=== PATIENT | male | born 1940 | race Caucasian/White ===

== ENCOUNTER 2020-11-02 17:54 | Emergency (ER) | payer MEDICARE ==
[~2020-11-02] VITALS: Ht 182.9 cm; Wt 107.6 kg
--- NOTE | 2020-11-02 18:24 | PHYS DOC ---
Adult General Chief Complaint Chief Complaint: SHORTNESS OF BREATH HPI HPI Patient is a 79-year-old male presents emergency department complaining of shortness of breath on exertion for the past several weeks, patient states that has become worse over the past week, patient states he sees his primary care Dr. Bennett several times and has been treated just recently with a prednisone Medrol Dosepak which did not seem to be working so well even though he has what he believes is 1 or 2 days left on the dosing regimen, patient also states that he was started on Flonase nasal spray and Singulair yesterday he had taken 1 dose and noticed that he did not feel better right away, after speaking with his who is been having the same symptoms for even longer had decided that he would come in for an evaluation as he is worried that he may have something wrong like a pneumonia or blood clot in his lungs. Patient states that he just recently tested negative for Covid 19 virus, the patient states that he does not wish to be tested again for the COVID-19 virus. The patient does deny fever or chills, cough, congestion, chest pain, chest palpitations, nausea, vomiting, or diarrhea or constipation. 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 Patient denies any other physical elements or physical concerns. Review of Systems Review of Systems 14 body systems of review of systems have been reviewed. See HPI for pertinent positives and negative responses, otherwise all other systems are negative, nonpertinent or noncontributory. Current Medications Current Medications Alendronate 70 mg every morning, amlodipine 5 mg twice daily, Eliquis 5 mg 5 mg twice daily, Pulmicort nebulizer twice daily, Tikosyn 250 mcg twice daily, Cymbalta 20 mg twice daily, Flonase 50 mcg nasal spray as needed, glucosamine 500 mg tablets twice daily, Synthroid 150 mcg daily, losartan 100 mg daily, naproxen sodium 500 mg daily, omeprazole DR 20 mg capsule daily, Perforomist 20 mcg nebulizer solution twice daily, Zocor 10 mg daily, Symbicort 80-4.5 mcg daily, Flomax 0.4 mg daily Singulair daily Allergies Allergies Allergies Coded Allergies Type Severity Reaction Last Updated Verified No Known Drug Allergies 11/02/20 No Physical Exam Physical Exam Constitutional: Well developed, well nourished, no acute distress, non-toxic appearance. HENT: Normocephalic, atraumatic, bilateral external ears normal, oropharynx moist, no oral exudates, nose normal. Eyes: PERRLA, EOMI, conjunctiva normal, no discharge. Neck: Normal range of motion, no tenderness, supple, no stridor. Cardiovascular:Heart rate regular rhythm, no murmur Lungs & Thorax: I/E wheezing to bilateral upper lobes per auscultation, right middle lobe and bilateral lower lobes diminished, no other adventitious lung sounds appreciated. Abdomen: Bowel sounds normal, soft, no tenderness, no masses, no pulsatile masses. Skin: Warm, dry, no erythema, no rash. Back: No tenderness, no CVA tenderness. Extremities: No tenderness, no cyanosis, no clubbing, ROM intact, no edema. Neurologic: Alert and oriented X 3, normal motor function, normal sensory function, no focal deficits noted. Psychologic: Affect normal, judgement normal, mood normal. Current Patient Data Vital Signs Vital signs for initial exam were blood pressure right upper extremity NIBP 135/64, heart rate 70, respirations 16, oral temperature 97.9, oxygen saturation on room air was 98%. Lab Results Laboratory Tests Test 11/02/20 18:50 White Blood Count 6.4 x10^3/uL Red Blood Count 4.16 x10^6/uL Hemoglobin 11.8 g/dL Hematocrit 36.3 % Mean Corpuscular Volume 87 fL Mean Corpuscular Hemoglobin 28 pg Mean Corpuscular Hemoglobin Concent 32 g/dL Red Cell Distribution Width 14.4 % Platelet Count 232 x10^3/uL Neutrophils (%) (Auto) 79 % Lymphocytes (%) (Auto) 14 % Monocytes (%) (Auto) 7 % Eosinophils (%) (Auto) 0 % Basophils (%) (Auto) 0 % Neutrophils # (Auto) 5.0 x10^3uL Lymphocytes # (Auto) 0.9 x10^3/uL Monocytes # (Auto) 0.5 x10^3/uL Eosinophils # (Auto) 0.0 x10^3/uL Basophils # (Auto) 0.0 x10^3/uL Prothrombin Time 9.5 SEC Prothromb Time International Ratio 0.9 Activated Partial Thromboplast Time 27 SEC D-Dimer (Kimberly) 0.19 mg/L Sodium Level 136 mmol/L Potassium Level 4.6 mmol/L Chloride Level 99 mmol/L Carbon Dioxide Level 26 mmol/L Anion Gap 11 Blood Urea Nitrogen 23 mg/dL Creatinine 1.5 mg/dL Estimated GFR (Cockcroft-Gault) 45.0 BUN/Creatinine Ratio 15 Glucose Level 147 mg/dL Lactic Acid Level 2.1 mmol/L Calcium Level 8.4 mg/dL Magnesium Level 2.4 mg/dL Total Bilirubin 0.2 mg/dL Aspartate Amino Transf (AST/SGOT) 25 U/L Alanine Aminotransferase (ALT/SGPT) 37 U/L Alkaline Phosphatase 128 U/L Troponin I Quantitative < 0.017 ng/mL Total Protein 6.7 g/dL Albumin 3.5 g/dL Albumin/Globulin Ratio 1.1 Current Medications Medications (Trade) Dose Ordered Sig/Lucio Route PRN Reason Start Time Stop Time Status Last Admin Dose Admin Albuterol Sulfate (Ventolin) 2.5 mg STK-MED ONCE .ROUTE 11/02/20 18:57 11/02/20 18:57 DC Azithromycin (Zithromax) 500 mg 1X ONCE PO 11/02/20 20:30 11/02/20 20:31 UNV EKG EKG EKG performed at 1838 by ED nursing staff, heart rate 65 bpm, no P waves appreciated, QTc interval 0.450, no acute STEMI, no acute ACS, no acute ischemia appreciated, EKG interpreted by ED attending Dr. Gifford. Radiology/Procedures Radiology/Procedures STATUS: REG ER ORD. PHYSICIAN: MATT ROSALES APRN REASON: SHORT OF BREATH PROCEDURE: CHEST PA & LATERAL Exam: Chest 2 views INDICATION: Shortness of breath TECHNIQUE: Frontal and lateral view of the chest Comparisons: None FINDINGS: Pacer with leads terminating the right atrium and ventricle. The cardiomediastinal silhouette and pulmonary vessels are within normal limits. Patchy airspace disease at the lung bases bilaterally. No pleural effusion. IMPRESSION: Patchy bibasilar airspace disease. Electronically signed by: Leonid De La Cruz MD (11/02/2020 7:23 PM) [facility] DICTATED AND SIGNED BY: LEONID DE LA CRUZ MD DATE: 11/02/201921 CC: MATT ROSALES APRN; SHRUTHI BENNETT MD ~MTH0 0 Heart Score Risk Factors: Risk Factors: DM, Current or recent (<one month) smoker, HTN, HLP, family history of CAD, obesity. Risk Scores: Risk Factors: DM, Current or recent (<one month) smoker, HTN, HLP, family history of CAD, obesity. Course & Med Decision Making Course & Med Decision Making Pertinent Labs and Imaging studies reviewed. (See chart for details) 79-year-old male presented to the emergency department complaining of shortness of breath over the past several weeks that became worse over the past week, he is currently being closely followed by his primary care Dr. Shruthi Bennett, he has approximately 1 to 2 days left on a Medrol Dosepak and was recently started on Singulair and Flonase nasal spray. Patient gave the Singulair and Flonase nasal spray 1 day trial and decided that it was not working and decided to come into the emergency department today. Patient's initial presentation was nontoxic, he was in no respiratory distress, he had no chest pains. Upon physical examination light I/E wheezing of the bilateral upper lobes were noted, a albuterol breathing treatment was initiated by house respiratory therapist, upon reevaluation patient's lungs were clear to auscultation. Patient's lab work was mostly unremarkable, his EKG was negative for acute findings, his troponinI was negative as well. The patient did have a elevated lactic acid at 2.1, this is only 1/10 above the high side of normal, related to the patient's nontoxic presentation, in no respiratory distress, no chest pains, this is most likely a negative outlier. The patient chest x-ray did show some patchy airspa ce disease without effusion read by house radiologist interpretation, will start patient on Zithromax/Z-Dat. Discussed findings with patient who upon reexamination remained nontoxic in appearance, was in no respiratory distress, and had no complaints at this time. Patient gave verbal understanding of prescription medications Zithromax and strict follow-up instructions to see Dr. Bennett tomorrow patient states that he will see his doctor tomorrow, gave verbal understanding of return to ER precautions and concerns, patient had no further questions or concerns, patient discharged home without incident. Patient will be diagnosed with community-acquired pneumonia related to presentation, complaint, and chest x-ray interpretation, the patient's curb 65 score is low and not recommended for inpatient care, related to patient's close care by his primary care physician and patient's nontoxic, negative physical examination at this time, I feel it is safe for the patient to be discharged to home and treat his pneumonia with a macrolide Zithromax Dragon Disclaimer Dragon Disclaimer This electronic medical record was generated, in whole or in part, using a voice recognition dictation system. Departure Departure: Impression: Primary Impression: Community acquired pneumonia Disposition: DC HOME SELF CARE/HOMELESS Condition: GOOD Referrals: SHRUTHI BENNETT MD (PCP) Patient Instructions: Pneumonia, Adult Additional Instructions: You have been evaluated in the emergency department today for your cough and shortness of breath, your chest x-ray showed some mild patchy airspace is suggestive of pneumonia, related to your physical presentation I feel that it is safe for you to be discharged home with a prescription for azithromycin, I have given your first dose here in the ER, please take the Z-Dat as directed, it is imperative that you see your doctor tomorrow for a reevaluation of your breathing problems. Dr. Bennett needs to know that I have started you on the Z- Dat, and that your x-ray was suggestive of mild patchy airspace disease without pleural effusion. Please return to the emergency room immediately if your symptoms worsen, or you have other concerns. Please continue to take your normal medications as directed by your primary care Dr. Bennett. EMERGENCY DEPARTMENT GENERAL DISCHARGE INSTRUCTIONS Thank you for coming to [facility] (ED) today and trusting us with you care. We trust that you had a positivie experience in our Emergency Department. If you wish to speak to the department management, you may call the director at [phone]. YOUR FOLLOW UP INSTRUCTIONS ARE FOLLOWS: 1. Do you have a private Doctor? If you do not have a private doctor, please ask for a resource list of physicians or clinics that may be able to assist you with follow up care. 2. The Emergency Physician has interpreted your x-rays. The X-Ray specialist will also review them. If there is a change in the findings, you will be notified in 48 hours when at all possible. 3. A lab test or culture has been done, your results will be reviewed and you will be notified if you need a change in treatment. ADDITIONAL INSTRUCTIONS AND INFORMATION: 1. Your care today has been supervised by a physician who is specially trained in emergency care. Many problems require more than one evaluation for a complete diagnosis and treatment. We recommend that you schedule your follow up appointment as recommended to ensure complete treatment of you illness or injury. If you are unable to obtain follow up care and continue to have a problem, or if your condition worsens, we recommend that you return to the ED. 2. We are not able to safely determine your condition over the phone nor are we able to give sound medical advice over the phone. For these safety reasons, if you call for medical advice we will ask you to come to the ED for further evaluation. 3. If you have any questions regarding these discharge instructions please call the ED at [phone]. SAFETY INFORMATION: In the interest of safety, wellness, and injury prevention; we encourage you to wear your sealbelt, if you smoke; quite smoking, and we encourage family to use a protective helmet for bicycling and other sporting events that present an increased risk for head injury. IF YOUR SYMPTOMS WORSEN OR NEW SYMPTOMS DEVELOP, OR YOU HAVE CONCERNS ABOUT YOUR CONDITION; OR IF YOUR CONDITION WORSENS WHILE YOU ARE WAITING FOR YOUR FOLLOW UP APPOINTMENT; EITHER CONTACT YOUR PRIMARY CARE DOCTOR, THE PHYSICIAN WHOSE NAME AND NUMBER YOU WERE GIVEN, OR RETURN TO THE ED IMMEDIATELY. Scripts Azithromycin (ZITHROMAX) 250 Mg Tablet 1 PKG PO UD for PNEUMONIA, #6 TAB 0 Refills Prov: MATT ROSALES SALOONKEEPER 11/02/20 Problem Qualifiers Primary Impression: Community acquired pneumonia Laterality: unspecified laterality Qualified Codes: J18.9 - Pneumonia, unspecified organism MATT ROSALES SALOONKEEPER Nov 02, 2020 18:24
[2020-11-02] MEDS ORDERED: ALBUTEROL SULFATE 2.5 MG/3 ML NEBU. ONE (18:57)
[2020-11-02 19:21] LABS: BASO % 0 % (0-3); EOS % 0 % (0-3); HEMATOCRIT 36.3 % (39.0-53.0); HEMOGLOBIN 11.8 g/dL (13.0-17.5); LYMPH # 0.9 x10^3/uL (1.0-4.8); LYMPH % 14 % (24-48); MEAN CORPUSCULAR HEMOGLOBIN 28 pg (25-35); MEAN CORPUSCULAR HGB CONC 32 g/dL (31-37); MEAN CORPUSCULAR VOLUME 87 fL (79-100); MONO # 0.5 x10^3/uL (0.0-1.1); MONO % 7 % (0-9); NEUT % 79 % (31-73); PLATELET COUNT 232 x10^3/uL (140-400); RED BLOOD COUNT 4.16 x10^6/uL (4.30-5.70); RED CELL DISTRIBUTION WIDTH 14.4 % (11.5-14.5); WHITE BLOOD COUNT 6.4 x10^3/uL (4.0-11.0)
--- NOTE | 2020-11-02 19:26 | RAD ---
Exam: Chest 2 views INDICATION: Shortness of breath TECHNIQUE: Frontal and lateral view of the chest Comparisons: None FINDINGS: Pacer with leads terminating the right atrium and ventricle. The cardiomediastinal silhouette and pulmonary vessels are within normal limits. Patchy airspace disease at the lung bases bilaterally. No pleural effusion. IMPRESSION: Patchy bibasilar airspace disease. Electronically signed by: Leonid Chatman MD (11/02/2020 7:23 PM) MELVI
[2020-11-02 19:30] LABS: CALCIUM 8.4 mg/dL (8.5-10.1); CREATININE 1.5 mg/dL (0.7-1.3); POTASSIUM 4.6 mmol/L (3.5-5.1)
--- NOTE | 2020-11-02 19:37 | EKG ---
[facility] ED [facility] [address] [place] [id number] Test Date: 2020-11-02 Test Time: 18:38:21 Pat Name: TRI SALMERON Department: Room: Gender: M Japanese Professor: : 1940 Requested By: MATT ROSALES Order Number: [id number] Reading MD: Measurements Intervals [place] Rate: 65 P: [place]: QRS: -8 QRSD: 76 T: 14 QT: 432 QTc: 450 Interpretive Statements IRREGULAR RHYTHM, NO P-WAVE FOUND VENTRICULAR PREMATURE COMPLEX(ES) LEFTWARD AXIS ABNORMAL ECG RI6.02 No previous ECG available for comparison
[2020-11-02 19:43] LABS: ALBUMIN 3.5 g/dL (3.4-5.0); ALBUMIN/GLOBULIN RATIO 1.1 (1.0-1.7); MAGNESIUM 2.4 mg/dL (1.8-2.4); TOTAL BILIRUBIN 0.2 mg/dL (0.2-1.0); TOTAL PROTEIN 6.7 g/dL (6.4-8.2)
[2020-11-02] MEDS ORDERED: AZITHROMYCIN 250 MG TABLET. PO ONE (20:30)
[2020-11-02 20:32] VITALS: BP 135/69
[2020-11-02] MEDS ORDERED: AZIT250T PO (20:45)
== END 2020-11-02 21:17 | disposition home or self-care (01) ==
LOC: ER 17:54
DX: J18.9 Pneumonia, unspecified organism (principal); J44.9 Chronic obstructive pulmonary disease, unspecified; G47.30 Sleep apnea, unspecified; Z95.0 Presence of cardiac pacemaker
CPT/HCPCS: 36415; 71046; 80053; 83735; 84484; 85025; 85379; 85610; 85730; 93005; 94640; 99285; J0456

== ENCOUNTER 2020-11-05 14:44 | Emergency (ER) | payer MEDICARE ==
[~2020-11-05] VITALS: Ht 182.9 cm; Wt 107.6 kg
[~2020-11-05 14:44] MED LIST: AZIT250T PO
[2020-11-05] MEDS ORDERED: ALBUTEROL SULFATE 2.5 MG/3 ML NEBU. NEB ONE (15:00)
--- NOTE | 2020-11-05 15:19 | RAD ---
EXAM: Chest, 2 views. HISTORY: Shortness of breath. Pneumonia. COMPARISON: 11/02/2020 FINDINGS: 2 views of the chest are obtained. There is no infiltrate, pleural effusion or pneumothorax . The heart is normal in size. There is a calcified granuloma within the right lower lobe. There is a cardiac pacemaker in expected position. IMPRESSION: No acute pulmonary finding. Electronically signed by: Denia Hameed MD (11/05/2020 3:16 PM) [id number]
[2020-11-05 15:44] LABS: BASO # 0.1 x10^3/uL (0.0-0.2); BASO % 1 % (0-3); EOS % 0 % (0-3); HEMATOCRIT 36.3 % (39.0-53.0); HEMOGLOBIN 11.7 g/dL (13.0-17.5); LYMPH # 1.8 x10^3/uL (1.0-4.8); LYMPH % 24 % (24-48); MEAN CORPUSCULAR HEMOGLOBIN 28 pg (25-35); MEAN CORPUSCULAR HGB CONC 32 g/dL (31-37); MEAN CORPUSCULAR VOLUME 87 fL (79-100); MONO % 13 % (0-9); NEUT # 4.8 x10^3uL (1.8-7.7); NEUT % 62 % (31-73); PLATELET COUNT 223 x10^3/uL (140-400); RED BLOOD COUNT 4.18 x10^6/uL (4.30-5.70); WHITE BLOOD COUNT 7.8 x10^3/uL (4.0-11.0)
[2020-11-05 15:53] LABS: CREATININE 1.1 mg/dL (0.7-1.3); GFR 64.4; POTASSIUM 3.7 mmol/L (3.5-5.1)
--- NOTE | 2020-11-05 15:56 | PHYS DOC ---
Past History Past Medical History: Arrhythmia, COPD, Hypothyroid Past Surgical History: Pacemaker Alcohol Use: None Adult General Chief Complaint Chief Complaint: SHORTNESS OF BREATH HPI HPI Patient is a 79-year-old male who presents emergency department complaining of increased fatigue and increased cough. Patient states he was seen here this past Tuesday and was diagnosed with pneumonia, has been taking his medicines like he should, patient states he actually feels better than he did last Tuesday, the patient states that his was admitted to the hospital just yesterday and he is concerned that maybe he needs to be admitted as well. Patient currently denies any chest pains, shortness of breath, recent fever chills, abdominal pain, nausea, vomiting, diarrhea, chest palpitations, skin rashes, nasal congestion. Patient denies any other physical elements or physical complaints. Patient states that he was tested earlier this year for the COVID-19 virus and does not wish to be tested today for the COVID-19 virus. Review of Systems Review of Systems 14 body systems of review of systems have been reviewed. See HPI for pertinent positives and negative responses, otherwise all other systems are negative, nonpertinent or noncontributory. Current Medications Current Medications Current Medications Medications (Trade) Dose Ordered Sig/Lucio Start Time Stop Time Status Last Admin Dose Admin Albuterol Sulfate (Ventolin) 2.5 mg 1X ONCE 11/05/20 15:00 11/05/20 15:08 DC 11/05/20 15:50 2.5 MG Allergies Allergies Allergies Coded Allergies Type Severity Reaction Last Updated Verified No Known Drug Allergies 11/02/20 No Physical Exam Physical Exam Constitutional: Well developed, well nourished, no acute distress, non-toxic appearance. HENT: Normocephalic, atraumatic, bilateral external ears normal, oropharynx moist, no oral exudates, nose normal. Eyes: PERRLA, EOMI, conjunctiva normal, no discharge. Neck: Normal range of motion, no tenderness, supple, no stridor. Cardiovascular:Heart rate regular rhythm, no murmur Lungs & Thorax: Bilateral breath sounds light i.e. wheezes eating to bilateral upper lobes, right middle lobe and lower lobe along with left lower lobe clear and diminished. Abdomen: Bowel sounds normal, soft, no tenderness, no masses, no pulsatile masses. Skin: Warm, dry, no erythema, no rash. Back: No tenderness, no CVA tenderness. Extremities: No tenderness, no cyanosis, no clubbing, ROM intact, no edema. Neurologic: Alert and oriented X 3, normal motor function, normal sensory function, no focal deficits noted. Psychologic: Affect normal, judgement normal, mood normal. Current Patient Data Vital Signs Vital Signs Date Time Temp Pulse Resp B/P (MAP) Pulse Ox O2 Delivery O2 Flow Rate FiO2 11/05/20 15:50 Room Air 11/05/20 14:58 97.9 61 16 151/64 (93) 98 Lab Results Laboratory Tests Test 11/05/20 15:22 White Blood Count 7.8 x10^3/uL (4.0-11.0) Red Blood Count 4.18 x10^6/uL (4.30-5.70) L Hemoglobin 11.7 g/dL (13.0-17.5) L Hematocrit 36.3 % (39.0-53.0) L Mean Corpuscular Volume 87 fL (79-100) Mean Corpuscular Hemoglobin 28 pg (25-35) Mean Corpuscular Hemoglobin Concent 32 g/dL (31-37) Red Cell Distribution Width 14.0 % (11.5-14.5) Platelet Count 223 x10^3/uL (140-400) Neutrophils (%) (Auto) 62 % (31-73) Lymphocytes (%) (Auto) 24 % (24-48) Monocytes (%) (Auto) 13 % (0-9) H Eosinophils (%) (Auto) 0 % (0-3) Basophils (%) (Auto) 1 % (0-3) Neutrophils # (Auto) 4.8 x10^3uL (1.8-7.7) Lymphocytes # (Auto) 1.8 x10^3/uL (1.0-4.8) Monocytes # (Auto) 1.0 x10^3/uL (0.0-1.1) Eosinophils # (Auto) 0.0 x10^3/uL (0.0-0.7) Basophils # (Auto) 0.1 x10^3/uL (0.0-0.2) EKG EKG EKG performed at 1545 by [facility] shows patient in a normal sinus rhythm without ectopy heart rate is 66 bpm, KS interval 0.200, QTc in terval 0.472, no ACS, no acute ischemia, no STEMI noted, EKG interpreted by ED attending Dr. Brady. Radiology/Procedures Radiology/Procedures STATUS: REG ER ORD. PHYSICIAN: MATT ROSALES APRN REASON: SHORT OF BREATH, RECENT PNEUMONIA PROCEDURE: CHEST PA & LATERAL EXAM: Chest, 2 views. HISTORY: Shortness of breath. Pneumonia. COMPARISON: 11/02/2020 FINDINGS: 2 views of the chest are obtained. There is no infiltrate, pleural effusion or pneumothorax. The heart is normal in size. There is a calcified granuloma within the right lower lobe. There is a cardiac pacemaker in expected position. IMPRESSION: No acute pulmonary finding. Electronically signed by: Denia Chi MD (11/05/2020 3:16 PM) [id number] DICTATED AND SIGNED BY: DENIA CHI MD DATE: 11/05/20 1516 CC: MATT ROSALES APRN; ELEONORA BRADY MD; SHRUTHI BENNETT MD ~MTH0 0 Heart Score Risk Factors: Risk Factors: DM, Current or recent (<one month) smoker, HTN, HLP, family history of CAD, obesity. Risk Scores: Risk Factors: DM, Current or recent (<one month) smoker, HTN, HLP, family history of CAD, obesity. Course & Med Decision Making Course & Med Decision Making Pertinent Labs and Imaging studies reviewed. (See chart for details) Patient presents emergency department complaining of being diagnosed with pneumonia earlier this week, states that his is in the hospital and wonders whether he should be in the hospital as well. Physical examination was concerning for mild wheezing of upper lobes, a albuterol nebulizer treatment was ordered. Patient's physical examination otherwise was unremarkable, I had seen this patient this past Tuesday and diagnosed him with pneumonia, starting him on a Z-Dat, patient is nontoxic in appearance. Patient is in no apparent distress, patient has a significantly better presentation than he did when I examined and cared for him this past Tuesday. Discussed with patient that I will repeat his examination to include x-ray, EKG, and lab work and determine whether or not he needs to be admitted to the hospital. Patient did state that he does not wish to be admitted to the hospital, he was is concerned that since his was admitted that he may need to be admitted as well. Results pending at this time. Patient's chest x-ray was unremarkable, no longer showing concerns for pneumonia. Patient's labs were also unremarkable, patient's EKG had not changed from prior EKG this past Tuesday. Related to patient's ongoing fatigue, recommended patient have Covid testing reobtain, patient was amenable to this, patient was retested for Covid today in the emergency department. Discussed findings with patient, recommended that patient continue his outpatient community-acquired pneumonia regimen, will add albuterol nebulizer to his home treatment while he is currently on his antibiotic regimen. Patient is to call his primary care physician and ask if he needs to continue using the albuterol nebulizer after his last dose of antibiotic. Patient gave verbal understanding of this, patient states that he would have rather gone home anyway, patient states that he was relieved and no that his lab work looks better and his chest x-ray looks better. Patient gave verbal understanding of return to ER precautions or concerns, patient had no further questions or concerns, patient discharged home without incident. Patient gave verbal understanding of COVID-19 results pending. Dragon Disclaimer Dragon Disclaimer This electronic medical record was generated, in whole or in part, using a voice recognition dictation system. Departure Departure: Impression: Primary Impression: Feared condition not demonstrated Additional Impressions: Wheezing without diagnosis of asthma Person under investigation for COVID-19 Disposition: 01 DC HOME SELF CARE/HOMELESS Condition: IMPROVED Referrals: SHRUTHI BENNETT MD (PCP) Additional Instructions: You are reevaluated today for your pneumonia symptoms, your x-ray and laboratory work shows that you are improving, at this time I do not feel that you need to come into the hospital, we discussed hospital admission and we made a joint decision to you can go home and continue your antibiotic regimen. However I am adding an albuterol nebulizer medication that you can use while you are currently taking the antibiotics for the pneumonia infection. After the medication regimen is complete, please call Dr. Bennett and ask for his approval to continue any further use of albuterol nebulizer treatments. Please come to back to the emergency department for reevaluation for worsening symptoms or other concerns. EMERGENCY DEPARTMENT GENERAL DISCHARGE INSTRUCTIONS Thank you for coming to [facility] (ED) today and trusting us with you care. We trust that you had a positivie experience in our Emergency Department. If you wish to speak to the department management, you may call the director at [phone]. YOUR FOLLOW UP INSTRUCTIONS ARE FOLLOWS: 1. Do you have a private Doctor? If you do not have a private doctor, please ask for a resource list of physicians or clinics that may be able to assist you with follow up care. 2. The Emergency Physician has interpreted your x-rays. The X-Ray specialist will also review them. If there is a change in the findings, you will be notified in 48 hours when at all possible. 3. A lab test or culture has been done, your results will be reviewed and you will be notified if you need a change in treatment. ADDITIONAL INSTRUCTIONS AND INFORMATION: 1. Your care today has been supervised by a physician who is specially trained in emergency care. Many problems require more than one evaluation for a complete diagnosis and treatment. We recommend that you schedule your follow up appointment as recommended to ensure complete treatment of you illness or injury. If you are unable to obtain follow up care and continue to have a problem, or if your condition worsens, we recommend that you return to the ED. 2. We are not able to safely determine your condition over the phone nor are we able to give sound medical advice over the phone. For these safety reasons, if you call for medical advice we will ask you to come to the ED for further evaluation. 3. If you have any questions regarding these discharge instructions please call the ED at [phone]. SAFETY INFORMATION: In the interest of safety, wellness, and injury prevention; we encourage you to wear your sealbelt, if you smoke; quite smoking, and we encourage family to use a protective helmet for bicycling and other sporting events that present an increased risk for head injury. IF YOUR SYMPTOMS WORSEN OR NEW SYMPTOMS DEVELOP, OR YOU HAVE CONCERNS ABOUT YOUR CONDITION; OR IF YOUR CONDITION WORSENS WHILE YOU ARE WAITING FOR YOUR FOLLOW UP APPOINTMENT; EITHER CONTACT YOUR PRIMARY CARE DOCTOR, THE PHYSICIAN WHOSE NAME AND NUMBER YOU WERE GIVEN, OR RETURN TO THE ED IMMEDIATELY. Scripts Albuterol Sulfate (ALBUTEROL SULFATE NEB SOLN ) 2.5 Mg/3 Ml Vial.neb 1 VIAL NEB PRN Q4HRS for WHEEZING DURING CAP TREATMENT , #50 VIAL USE IN NEBULIZER MACHINE UP TO EVERY 4 HOURS NEEDED FOR SHORTNESS OF BREATH AND WHEEZING DURING YOUR COMMUNITY AQUIRED PNEUMONIA ANTIBIOTIC TREATMENT REGIMEN. AFTER ANTIBIOTIC REGIMEN IS COMPLETE, PLEASE OBTAIN APPROVAL FROM YOUR PRIMARY DOCTOR FOR CONTINUED USE. Prov: MATT ROSALES APRN 11/05/20 Problem Qualifiers MATT ROSALES APRN Nov 05, 2020 15:56
[2020-11-05 15:59] LABS: ALBUMIN 3.4 g/dL (3.4-5.0); MAGNESIUM 2.4 mg/dL (1.8-2.4); TOTAL BILIRUBIN 0.2 mg/dL (0.2-1.0); TOTAL PROTEIN 6.8 g/dL (6.4-8.2)
[2020-11-05 16:05] VITALS: BP 107/68
--- NOTE | 2020-11-05 16:12 | EKG ---
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
[2020-11-05] MEDS ORDERED: ALBU2.5V5 NEB (16:36)
== END 2020-11-05 16:49 | disposition home or self-care (01) ==
LOC: ER 14:44
DX: U07.1 COVID-19 (principal); R06.2 Wheezing; R53.83 Other fatigue; J44.9 Chronic obstructive pulmonary disease, unspecified; E03.9 Hypothyroidism, unspecified; Z95.0 Presence of cardiac pacemaker
CPT/HCPCS: 36415; 71046; 80053; 83605; 83735; 84484; 85025; 93005; 94640; 99285; C9803; J7613; U0003

== ENCOUNTER → 2021-03-20 | Outpatient (CLI) | payer MEDICARE ==
[~2021-03-20] MED LIST changes: +ALBU2.5V5 NEB
--- NOTE | 2021-03-20 08:27 | RAD ---
EXAM: Chest, 2 views. HISTORY: Shortness of breath. COMPARISON: 11/05/2020 FINDINGS: 2 views of chest are obtained. There is no infiltrate, pleural effusion or pneumothorax. Th e heart is normal in size. There is a cardiac pacemaker in expected position. There is a calcified gr anuloma within the right lower lobe. IMPRESSION: No acute pulmonary finding. Electronically signed by: Denia Hameed MD (03/20/2021 8:24 AM) [id number]
== END ==
LOC: RAD 07:42
PROVIDERS: ATTEND Internal Medicine Interventional Cardiology
DX: R06.02 Shortness of breath (principal); Z86.16 Personal history of COVID-19
CPT/HCPCS: 71046

== ENCOUNTER → 2021-04-24 | Outpatient (CLI) | payer MEDICARE ==
--- NOTE | 2021-04-24 13:07 | RAD ---
PQRS Compliance Statement: One or more of the following individualized dose reduction techniques were utilized for this examinat ion: 1. Automated exposure control 2. Adjustment of the mA and/or kV according to patient size 3. Use of iterative reconstruction technique CT THORAX WO 04/24/2021 10:47 AM Indication: Abnormal CT of the chest, lung nodule COMPARISON: CT chest 05/07/2005 TECHNIQUE: Multiple axial CT images of the chest were obtained without intravenous contrast. Coronal and sagittal reformats are provided. FINDINGS: Thyroid gland is normal in appearance. No pathologically enlarged thoracic lymph nodes are identified . Calcified mediastinal and bilateral hilar lymph nodes are identified. Heart size within normal limi ts. Coronary artery vascular calcific effusions are identified involving the left anterior descending and left circumflex vessels. Right chest wall cardiac device is identified with leads terminating in the right atrium and right ventricle. There is a simple cyst in the right hepatic lobe measuring 1.7 cm. 2 mm solid noncalcified pulmonary nodule in the lingula on series 5, image 119) is not definitively s een on prior examination. Calcified granuloma in the left lower lobe measures 10 mm. Densely calcifie d granuloma identified in the right lower lobe measuring 19 mm. No pleural effusions, pulmonary vascu lar congestion or pneumothorax. No suspicious osseous abnormality is identified. IMPRESSION: There is a 2 mm solid noncalcified pulmonary nodule in the lingula which is not definitively seen on prior examination. Fleischner guidelines for incidentally detected pulmonary nodules suggests no rout ine follow-up for low risk patients and optional CT at 12 months for high risk patients with solid no ncalcified pulmonary nodules less than 6 mm in size. Otherwise, densely calcified granulomatous changes identified within the lower lobes bilaterally. Neftali cified mediastinal and hilar lymph nodes suggest sequela of prior granulomatous exposure. Electronically signed by: Kaycee Frias MD (04/24/2021 1:05 PM) [id number]
== END ==
LOC: CT 10:45
PROVIDERS: ATTEND Internal Medicine Cardiovascular Disease
DX: R91.1 Solitary pulmonary nodule (principal)
CPT/HCPCS: 71250

== ENCOUNTER 2021-06-14 13:10 | Emergency (ER) | payer MEDICARE ==
[~2021-06-14] VITALS: Ht 182.9 cm; Wt 107.9 kg
[2021-06-14 14:02] LABS: BASO % 1 % (0-3); EOS # 0.3 x10^3/uL (0.0-0.7); EOS % 5 % (0-3); HEMATOCRIT 33.1 % (39.0-53.0); HEMOGLOBIN 10.6 g/dL (13.0-17.5); LYMPH # 2.5 x10^3/uL (1.0-4.8); LYMPH % 34 % (24-48); MEAN CORPUSCULAR HEMOGLOBIN 26 pg (25-35); MEAN CORPUSCULAR HGB CONC 32 g/dL (31-37); MEAN CORPUSCULAR VOLUME 81 fL (79-100); MONO # 0.6 x10^3/uL (0.0-1.1); MONO % 9 % (0-9); NEUT # 3.8 x10^3uL (1.8-7.7); NEUT % 52 % (31-73); PLATELET COUNT 240 x10^3/uL (140-400); RED BLOOD COUNT 4.08 x10^6/uL (4.30-5.70); WHITE BLOOD COUNT 7.3 x10^3/uL (4.0-11.0)
[2021-06-14 14:05] LABS: CALCIUM 8.5 mg/dL (8.5-10.1); CREATININE 1.2 mg/dL (0.7-1.3); GFR 58.1; POTASSIUM 3.9 mmol/L (3.5-5.1)
--- NOTE | 2021-06-14 14:12 | PHYS DOC ---
Past History Past Medical History: Arrhythmia, COPD, Hypothyroid Additional Past Medical Histor: BURSITIS Past Surgical History: Pacemaker, Other Additional Past Surgical Histo: CARDIAC ABLATION Alcohol Use: None General Adult EDM: Chief Complaint: CHEST PAIN HPI: HPI: Patient is an 80-year-old male coming in for complaints of chest tightness and epigastric discomfort associated with difficulty catching his breath when he bends over. Patient states he has been having the symptoms for the past 1 to 2 weeks but has had 3 episodes today, and took longer to recover. Patient states he has no symptoms now. Says he is also felt like he is wheezing for the past 1 to 2 weeks, is having cough productive of white phlegm in the mornings which is baseline with COPD. Patient says he is scheduled to have Lasix surgery tomorrow at noon. Has a history of Covid in October, and has had both of his Materna shots since. States he has had increasing fatigue over the past year. 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 [] HENT: Normocephalic, atraumatic, bilateral external ears normal, nose normal. [] Eyes: PERRLA, conjunctiva normal, no discharge. [] Neck: No rigidity, supple, no stridor. [] Cardiovascular: Regular rate and rhythm, brisk cap refill [] Lungs & Thorax: Non labored symmetric respirations, no tachypnea or respiratory distress, faint wheezes [] Abdomen: Soft, nondistended. Skin: Warm, dry, no erythema, no rash. [] Back: Unremarkable Extremities: No deformities, range of motion grossly intact, no lower extremity edema [] Neurologic: Alert and oriented X 3, no focal deficits noted. [] Psychologic: Affect normal, judgement normal, mood normal. [] Current Patient Data: Vital Signs: Vital Signs Date Time Temp Pulse Resp B/P (MAP) Pulse Ox O2 Delivery O2 Flow Rate FiO2 06/14/21 13:15 97.7 59 20 136/84 99 Room Air EKG: EKG: Sinus rhythm, heart rate 56 bpm, borderline prolonged QT interval, left axis deviation, no ST elevation or depression, no ectopy. [] Radiology/Procedures: Radiology/Procedures: [][address] [address] IMAGING REPORT Signed PATIENT: TRI SALMERON ACCOUNT: [id number] : 1940 LOCATION: ER AGE: 80 SEX: M EXAM STATUS: PRE ER ORD. PHYSICIAN: KELSEA CHAIDEZ MD REASON: dyspnea PROCEDURE: CHEST PA & LATERAL XR CHEST 2V History: Reason: dyspnea / Spl. Instructions: / History: Comparison: March 20, 2021 Findings: No consolidation or pleural effusion. Normal heart size. No pneumothorax. Prior granulous disease within the chest. Right-sided pacemaker, unchanged. Impression: 1. No acute cardiopulmonary process. Electronically signed by: Bulmaro Tierney DO (06/14/2021 2:32 PM) [id number] DICTATED AND SIGNED BY: BULMARO TIERNEY DO DATE: 06/14/21 1431 CC: KELSEA CHAIDEZ MD; SHRUTHI BENNETT MD ~MTH0 0 Heart Score: C/O Chest Pain: Yes HEART Score for Chest Pain: HEART Score for Chest Pain Response (Comments) Value History Slighlty/Non-Suspicious 0 ECG Nonspecific Repolarizatio 1 Age > 65 2 Risk Factors 1 or 2 Risk Factors 1 Troponin < Normal Limit 0 Total 4 Risk Factors: Risk Factors: DM, Current or recent (<one month) smoker, HTN, HLP, family history of CAD, obesity. Risk Scores: Score 0 - 3: 2.5% MACE over next 6 weeks - Discharge Home Score 4 - 6: 20.3% MACE over next 6 weeks - Admit for Clinical Observation Score 7 - 10: 72.7% MACE over next 6 weeks - Early Invasive Strategies Course & Med Decision Making: Course & Med Decision Making Pertinent Labs and Imaging studies reviewed. (See chart for details) Patient's heart rate staying in the 50s, occasionally dropped to 46. Pacemaker present at 450. Patient states his pelt grader is pacemakers to start firing when he gets to 50 bpm. Discussed this is a possible cause of his symptoms, as patient did state that he felt well the lightheadedness and symptoms returned his heart rate went to 46. Work-up otherwise unremarkable and patient does not want be admitted due to his upcoming eye procedure tomorrow. [] Dragon Disclaimer: Dragon Disclaimer: This electronic medical record was generated, in whole or in part, using a voice recognition dictation system. Departure Departure: Impression: Primary Impression: Bradycardia Disposition: HOME / SELF CARE / HOMELESS Condition: STABLE Referrals: SHRUTHI BENNETT MD (PCP) Patient Instructions: Bradycardia KELSEA CHAIDEZ MD Jun 14, 2021 14:12
[2021-06-14 14:17] LABS: ALBUMIN 3.7 g/dL (3.4-5.0); ALBUMIN/GLOBULIN RATIO 1.1 (1.0-1.7); MAGNESIUM 2.5 mg/dL (1.8-2.4); TOTAL BILIRUBIN 0.3 mg/dL (0.2-1.0); TOTAL PROTEIN 7.1 g/dL (6.4-8.2)
--- NOTE | 2021-06-14 14:34 | RAD ---
XR CHEST 2V History: Reason: dyspnea / Spl. Instructions: / History: Comparison: March 20, 2021 Findings: No consolidation or pleural effusion. Normal heart size. No pneumothorax. Prior granulous disease wit hin the chest. Right-sided pacemaker, unchanged. Impression: 1. No acute cardiopulmonary process. Electronically signed by: Bulmaro Tierney DO (06/14/2021 2:32 PM) [id number]
[2021-06-14 14:41] LABS: CLARITY,URINE CLEAR; COLOR,URINE YELLOW; GLUCOSE,URINE NEG (NEG)
[2021-06-14 14:42] LABS: BILIRUBIN,URINE NEG (NEG); NITRITE,URINE NEG (NEG); UROBILINOGEN,URINE 0.2 mg/dL (0.2 mg/dL)
[2021-06-14 14:43] LABS: BACTERIA,URINE 0 /HPF (0-FEW); RBC,URINE 0 /HPF (0-2); SQUAMOUS EPITHELIAL CELL,UR OCC /LPF; WBC,URINE 0 /HPF (0-4)
[2021-06-14 16:16] VITALS: BP 117/65
--- NOTE | 2021-06-15 11:52 | EKG ---
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
== END 2021-06-14 16:35 | disposition home or self-care (01) ==
LOC: ER 13:10
DX: R00.1 Bradycardia, unspecified (principal); J44.9 Chronic obstructive pulmonary disease, unspecified; E03.9 Hypothyroidism, unspecified; Z95.0 Presence of cardiac pacemaker
CPT/HCPCS: 36415; 71046; 80053; 81001; 83690; 83735; 83880; 84443; 84484; 85025; 85379; 93005; 99285